=== PATIENT | female | born 1950 | race Caucasian/White ===

== ENCOUNTER 2018-09-10 14:04 | Observation (INO) ==
[2018-09-10] MEDS ORDERED: ASPIRIN 81 MG TAB.CHEW PO ONE (14:16)
[2018-09-10] MEDS ORDERED: NITROGLYCERIN 0.4 MG/TAB BTL SL ONE ×3 (14:19→14:38)
--- NOTE | 2018-09-10 14:20 | ERNOTE ---
Dyspnea - Date Date of Service: 09/10/18 - General Presenting Symptoms: shortness of breath Time Seen by Provider: 09/10/18 14:11 Source: patient Exam Limitations: no limitations - Immun/Allergies/Home Medications Immunizations: IMMUNIZATION HX Immunizations Up to Date Yes History of Influenza Vaccine No Hx Pneumococcal Vaccination No Allergies/Adverse Reactions: Allergies Sulfa (Sulfonamide Antibiotics) Allergy (Verified 09/10/18 14:16) latex Adverse Reaction (Mild, Verified 09/10/18 14:16) RASH, ITCH acetaminophen [From Percocet] Adverse Reaction (Verified 09/10/18 14:16) oxycodone HCl [From Percocet] Adverse Reaction (Verified 09/10/18 14:16) Home Medications: HOME MEDICATIONS Albuterol Sulfate [Proair Hfa] 2 puff IH Q4H PRN 09/05/14 [Last Taken Unknown] Aspirin [Aspirin Enteric Coated] 81 mg PO DAILY 09/05/14 [Last Taken Unknown] Budesonide/Formoterol Fumarate [Symbicort 80-4.5 Mcg Inhaler] 2 puff IH DAILY 09/05/14 [Last Taken Unknown] Cyanocobalamin [Vitamin B-12] 1,000 mcg PO DAILY 09/05/14 [Last Taken Unknown] Esomeprazole Magnesium [Nexium] 20 mg PO DAILY 09/05/14 [Last Taken Unknown] Levothyroxine Sodium [Synthroid] 137 mcg PO DAILY 09/05/14 [Last Taken 09/11/14 05:00] Lisinopril [Zestril] 10 mg PO DAILY 09/05/14 [Last Taken Unknown] Metoprolol Tartrate [Lopressor] 50 mg PO DAILY 09/05/14 [Last Taken 09/11/14 05:00] Multivitamins [Multivitamin Breanne] 1 cap PO DAILY 09/05/14 [Last Taken Unknown] Meloxicam 08/07/16 [Last Taken Unknown] - Pain Score Pain Score #1 Pain Score: 7 - History of Present Illness Narrative: The patient is a 68 year old female who presents for chest pain and dyspnea which has been present for 3 days. There are associated symptoms of nausea and cough. The patient reports pain to left anterior chest and tightness, 7/10. There are alleviating factors of rest. There are aggravating factors of lying flat and activity. Previous treatments have included: none. The past medical history includes: HTN, [place] (2000), hypothyroid, GERD and asthma. The social history is negative. The patient has had no ill contacts. Patient reports OK in 2000 without stent placement. Patient states she has been having dyspnea for several months but during the past 3 days began having CP with tightness wrapping around back. Patient states that she has also developed a cough with symptoms and felt feverish last evening. Treatment [employer] INST[employer] [place]OL[place]: none Initiating event: Reports: unknown Frequency of episodes: Reports: occassional episodes Modifying Factors - (Improves): Reports: rest Modifying Factors (Worsens): Reports: activity, coughing, lying down Associated Symptoms-Dyspnea: Reports: fever/chills, chest pain/discomfort, palpitations, cough. Denies: leg/calf pain, ankle/leg swelling, dizziness Review of Systems - Review of Systems Constitutional: Present: fever, fatigue. Absent: recent illness, chills EYE: Present: no symptoms reported ENT: Present: no symptoms reported. Absent: ear pain, nasal drainage, sore throat Respiratory: Present: shortness of breath, cough Cardiology: Present: chest pain, palpitations. Absent: edema Gastrointestinal/Abdominal: Present: nausea. Absent: vomiting, diarrhea, abdominal pain Genitourinary: Present: dysuria. Absent: frequency, decreased urinary output Musculoskeletal: Present: back pain - tightness Neurological: Present: no symptoms reported. Absent: headache Endocrine: Present: no symptoms reported Hematologic/Lymphatic: Present: no symptoms reported Psych: Present: no symptoms reported All Other Systems: All systems neg except as marked Medical History (Last Reviewed 09/10/18 @ 14:45 by Linda Cobos RN) Diverticulosis GERD (gastroesophageal reflux disease) Gout Heart attack Hiatal hernia Hypertension Hypothyroidism Surgical History: Surgical History (Last Reviewed 09/10/18 @ 14:45 by Linda Cobos RN) History of hysterectomy History of knee surgery right x2 Family History: Family History (Last Reviewed 09/10/18 @ 14:45 by Linda Cobos RN) Father Myocardial infarction Mother Myocardial infarction Hypothyroidism Daughter Hypothyroidism H/O blood clots Social History: Preferred Language Tajik Smoking Status Never smoker Abuse History No History of abuse Psych History No pertinent hx Alcohol Use rarely Drug Use none No Social History Section defined Physical Exam - Physical Exam General Appearance: Present: wd/wn, alert, mild distress, anxious Head Exam: Present: normal inspection, no evidence of injury Eye Exam: Normal inspection: bilateral Neck: Present: normal inspection, nontender Respiratory: Present: no respiratory distress, no accessory muscle use, chest nontender, decreased breath sounds - diffuse, shallow breathing Cardiovascular/Chest: Present: no murmur, normal peripheral pulses, tachycardia Gastrointestinal/Abdominal: Present: normal bowel sounds, nondistended, soft, no organomegaly, tenderness - suprapubic and LUQ Extremity Exam: Absent: pedal edema, extremity edema Neurological Exam: Present: alert, oriented, normal mood/affect Skin Exam: Present: normal color, warm/dry Progress - Date and Time Seen: Date and Time: 09/10/18 15:39 Low risk for Well's score with negative D-Dimer. 09/10/18 16:15 Reviewed case with . Patient will be admitted for acute CHF. Patient denies pain upon admission. Patient ambulatory to restroom and tachypneic with activity, output monitored. - Results and Orders Patient's Lab Results:: I have reviewed the patient's lab results. - Vital Signs Patient's Vital Signs:: I have reviewed the patient's vital signs. Vital Signs: Vital Signs 09/10/18 14:11 Temperature 37.4 C Pulse Rate 139 H Respiratory Rate 25 H Blood Pressure 218/120 H O2 Sat by Pulse Oximetry 94 - EKG EKG #1 EKG: NSR - tachycardia, rate 140 EKG read: Reviewed by me EKG Comments: Reviewed with - X-Ray X-Ray #1 X-Ray: chest Interpretation: Reviewed by me X-ray Comments: X-RAY REPORT ~[id number] RAD/Chest PA & Lateral *~ Exam Date: 09/10/2018 14:16 Ordering Physician: Mona Henson [employer]YST[employer] GROWING TECHNICIAN HISTORY: Chest Pain. Additional history from technologist: sob, chest pain, back pain for several days, asthma TECHNIQUE: PA and lateral views of the chest were obtained. 2 images. COMPARISONS: 12/26/2014 FINDINGS: Chest PA Lateral * Hypoinflated lung volumes. No consolidation or mass. There is generalized increased vascular markings and peripheral linear lung markings. There is trace amount of fluid within the fissures, and trace amount of pleural fluid within the dependent portion of the posterior costophrenic angles. There is no definable pneumothorax. Mild enlargement of the cardiac silhouette noted. Mild tortuosity of the thoracic aorta noted, with overlying atherosclerotic vascular calcifications. Trachea is in normal position. Bones show degenerative changes of the spine. IMPRESSION: Overall radiographic findings suggestive of congestive heart failure, with pulmonary venous congestion/interstitial edema and trace bilateral pleural fluid. Cardiomegaly. Electronically signed by Igor Viera M.D.. - Progress/Reassessment Chief Complaint: Dyspnea Departure Clinical Impression: Acute CHF Qualifiers: Heart failure type: unspecified Qualified Code(s): I50.9 - Heart failure, unspecified Chest pain Qualifiers: Chest pain type: unspecified Qualified Code(s): R07.9 - Chest pain, unspecified - Departure Disposition: Still a patient Condition: Fair
[2018-09-10 14:35] LABS: Hematocrit 40.6 % (37.0-47.0); Hemoglobin 12.8 gm/dL (12.5-16.0); Mean Cell Volume 92.7 fl (78-100); Mean Corpuscular Hemoglobin 29.2 pg (27-31); Mean Corpuscular Hgb Conc 31.5 g/dl (32-36); Neutrophil # 7.5 K/mm3 (1.3-6.0); Neutrophil % 69.8 % (42-75.0); Platelet Count 226 K/mm3 (150-450); Red Blood Count 4.38 M/mm3 (4.2-5.4); Red Cell Distribution Width 13.9 % (11.5-14.0); White Blood Count 10.7 K/mm3 (4.0-10.5)
[2018-09-10] MEDS ORDERED: MORPHINE SULFATE 2 MG/ML DISP.SYRIN IV ONE (14:46)
[2018-09-10 14:47] LABS: Prothrombin Time (Patient) 10.7 Seconds (9.0-11.0)
[2018-09-10 14:50] LABS: INR 1.07 INR (0.90-1.10); Partial Thrombolplastin Time 24.5 Seconds (24-32)
[2018-09-10 14:56] LABS: ALT 15 U/L (19-67); AST 17 U/L (0-48); Albumin * 3.8 gm/dl (3.4-5.0); Alkaline Phosphatase * 102 U/L (50-170); Anion Gap 13.8 mmol/L (6.8-13.8); BNP * 1862 pg/mL (5-325); BUN/Creatinine Ratio 16.7 (9.0-21.6); Bilirubin, Total 0.8 mg/dL (0.0-1.1); Blood Urea Nitrogen 14 mg/dL (3-23); Ca. Corrected For Albumin 9.3 mg/dL (8.4-10.2); Calcium * 9.5 mg/dL (7.9-10.9); Carbon Dioxide 27.5 mmol/L (24-32.6); Chloride 106 mmol/L (97-106); Glucose * 116 mg/dL (70-110); Potassium 4.3 mmol/L (3.4-4.6); Sodium 143 mmol/L (132-142); Troponin I Less than 0.017 ng/mL (0.00-0.10)
[2018-09-10 15:28] LABS: Urine Bilirubin Negative (NEGATIVE); Urine Blood Negative /ul (NEGATIVE); Urine Ketone 5 mg/dL (NEGATIVE); Urine Nitrite Negative (NEGATIVE); Urine Protein Negative (NEGATIVE); Urine Specific Gravity 1.025 SP.GR. (1.005-1.010); Urine Urobilinogen Normal (NORMAL)
[2018-09-10] MEDS ORDERED: FUROSEMIDE 10 MG/ML VIAL IV ONE (15:36)
[2018-09-10 15:38] LABS: Urine Appearance Clear (CLEAR); Urine Color Yellow
[2018-09-10 15:39] LABS: Urine Bacteria 1+; Urine RBC None Seen /hpf (0-5); Urine WBC 0-5 /hpf (0-5)
[2018-09-10] MEDS ORDERED: METOPROLOL TARTRATE 1 MG/ML AMPUL IV ONE (15:52)
[2018-09-10 16:37] LABS: CK Total * 56 U/L (0-259); CKMB 0.8 ng/mL (0.0-9.0); Troponin I Less than 0.017 ng/mL (0.00-0.10)
--- NOTE | 2018-09-10 19:09 | HP ---
Chief Complaint - Chief Complaint Date of Service: 09/10/18 Time of Service: 19:08 Chief Complaint: shortness of breatha nd chest pain History of Present Illness: Miya Luo, is a 68-year-old white female, with previous medical history of hypertension, hypothyroidism, questionable COPD who was admitted on 09/10/2018 because of shortness of breath and chest pain. The patient has been having shortness of breath with some wheezing for the last few weeks and called his primary care physician who told her not to worry.He told her to continue with her Symbicort and everything will be fine. Her shortness of breath started getting last night and she started having some left sided anteriror chest pin associated with bandlike back pain, 03/09. She also had cough and felt feverish . She then went to the ED today and CXR showed pulmonary congestion with BNP of 1820, normal troponin, EKG showed sinus tachycardia with HR 140, short AR interval. She got IV lasix and IV lopressor and admitted for observation. Medical History (Last Reviewed 09/10/18 @ 17:10 by Gogo Ortiz RN) Diverticulosis GERD (gastroesophageal reflux disease) Gout Heart attack Hiatal hernia Hypertension Hypothyroidism Surgical History: Surgical History (Last Reviewed 09/10/18 @ 17:10 by Gogo Ortiz RN) History of hysterectomy History of knee surgery right x2 Family History: Family History (Last Reviewed 09/10/18 @ 17:10 by Gogo Ortiz RN) Father Myocardial infarction Mother Myocardial infarction Hypothyroidism Daughter Hypothyroidism H/O blood clots Social History: Preferred Language Portuguese Smoking Status Never smoker Abuse History No History of abuse Psych History No pertinent hx Alcohol Use rarely Drug Use none No Social History Section defined Review Of Systems (GEN) - Review of Systems Generalized/Overall Review: Present: Fever. Absent: Chills EENTM: Absent: Blurred Vision Respiratory: Present: Cough, Shortness of Breath, Orthopnea, Wheezing Cardiac: Present: Chest Pain. Absent: Edema, Palpitations Abdominal: Absent: Nausea, Vomiting Genitourinary: Absent: Urgency, Frequency Musculoskeletal: Present: Back Pain Immunizations: IMMUNIZATION HX Immunizations Up to Date Yes History of Influenza Vaccine No Hx Pneumococcal Vaccination No Allergies/Adverse Reactions: Allergies Allergy/AdvReac Type Severity Reaction Status Date / Time Sulfa (Sulfonamide Allergy Verified 09/10/18 17:11 Antibiotics) latex AdvReac Mild RASH, ITCH Verified 09/10/18 17:11 acetaminophen [From Percocet] AdvReac Verified 09/10/18 17:11 oxycodone HCl [From Percocet] AdvReac Verified 09/10/18 17:11 Home Medications: HOME MEDICATIONS Albuterol Sulfate [Proair Hfa] 2 puff IH Q4H PRN 09/05/14 [Last Taken Unknown] Aspirin [Aspirin Enteric Coated] 81 mg PO DAILY 09/05/14 [Last Taken Unknown] Budesonide/Formoterol Fumarate [Symbicort 80-4.5 Mcg Inhaler] 2 puff IH DAILY 09/05/14 [Last Taken Unknown] Cyanocobalamin [Vitamin B-12] 1,000 mcg PO DAILY 09/05/14 [Last Taken Unknown] Esomeprazole Magnesium [Nexium] 20 mg PO DAILY 09/05/14 [Last Taken Unknown] Levothyroxine Sodium [Synthroid] 137 mcg PO DAILY 09/05/14 [Last Taken 09/11/14 05:00] Lisinopril [Zestril] 10 mg PO DAILY 09/05/14 [Last Taken Unknown] Metoprolol Tartrate [Lopressor] 50 mg PO DAILY 09/05/14 [Last Taken 09/11/14 05:00] Multivitamins [Multivitamin Breanne] 1 cap PO DAILY 09/05/14 [Last Taken Unknown] Meloxicam 08/07/16 [Last Taken Unknown] Meloxicam 7.5 mg PO HS 09/10/18 [Last Taken Unknown] Exam - Exam Vital Signs: Vital Signs - Last Taken Temp 37.4 C 09/10/18 14:11 Pulse 135 H 09/10/18 16:50 Resp 15 09/10/18 16:50 BP 137/80 09/10/18 16:50 Pulse Ox 91 L 09/10/18 16:50 Constitutional: Present: Alert, Cooperative, Obese ENT Exam: Present: hearing grossly normal Eye Exam: bilateral eye: normal inspection, PERRL, EOMI Neck: Present: supple Respiratory: Present: decreased breath sounds. Absent: No rales, No wheezing Cardiovascular/Chest: Present: JVD, tachycardia. Absent: regular rate, rhythm, no murmur Abdomen: Present: Normal bowel sounds, soft, nontender, nondistended Extremity: Present: no calf tenderness, pedal edema Diagnostic Studies: Abnormal Lab Results 09/10/18 09/10/18 09/10/18 Range/Units 14:28 14:28 15:25 WBC 10.7 H (4.0-10.5) K/mm3 MCHC 31.5 L (32-36) g/dl Lymphocytes % 19.8 L (20-51) % Eosinophils % 3.2 H (0.0-3.0) % Neutrophils # 7.5 H (1.3-6.0) K/mm3 Sodium 143 H (132-142) mmol/L Plasma Sodium 143 H (130-142) mmol/L Random Glucose 116 H (70-110) mg/dL ALT 15 L (19-67) U/L B-Natriuretic Peptide 1862 H (5-325) pg/mL Ur Leukocyte Esterase 25 H (NEGATIVE) /ul Urine Bacteria 1+ H (NONE) Laboratory Results WBC 10.7 K/mm3 (4.0-10.5) H 09/10/18 14:28 RBC 4.38 M/mm3 (4.2-5.4) 09/10/18 14:28 Hgb 12.8 gm/dL (12.5-16.0) 09/10/18 14:28 Hct 40.6 % (37.0-47.0) 09/10/18 14:28 MCV 92.7 fl (78-100) 09/10/18 14:28 MCH 29.2 pg (27-31) 09/10/18 14:28 MCHC 31.5 g/dl (32-36) L 09/10/18 14:28 RDW 13.9 % (11.5-14.0) 09/10/18 14:28 Plt Count 226 K/mm3 (150-450) 09/10/18 14:28 MPV 10.0 fl (8-12.5) 09/10/18 14:28 Immature Gran % (Auto) 0.30 % (0.001-0.429) 09/10/18 14:28 Immature Gran # (Auto) 0.03 K/mm3 (0.000-0.0310) 09/10/18 14:28 Neutrophils % 69.8 % (42-75.0) 09/10/18 14:28 Lymphocytes % 19.8 % (20-51) L 09/10/18 14:28 Monocytes % 6.2 % (0.0-9) 09/10/18 14:28 Eosinophils % 3.2 % (0.0-3.0) H 09/10/18 14:28 Basophils % 0.7 % (0.0-1.0) 09/10/18 14:28 Nucleated RBC % 0.0 k/mm3 (0-1) 09/10/18 14:28 Neutrophils # 7.5 K/mm3 (1.3-6.0) H 09/10/18 14:28 Lymphocytes # 2.12 k/mm3 (1.5-3.5) 09/10/18 14:28 Monocytes # 0.7 k/mm3 (0.0-1.0) 09/10/18 14:28 Eosinophils # 0.3 k/mm3 (0.0-0.7) 09/10/18 14:28 Absolute Basophils 0.1 k/mm3 (0.0-0.1) 09/10/18 14:28 PT 10.7 Seconds (9.0-11.0) 09/10/18 14:28 INR (Anticoag Therapy) 1.07 INR (0.90-1.10) 09/10/18 14:28 PTT (Everardo) 24.5 Seconds (24-32) 09/10/18 14:28 D-Dimer 0.37 ug/mL (0.19-0.49) 09/10/18 14:28 Sodium 143 mmol/L (132-142) H 09/10/18 14:28 Plasma Sodium 143 mmol/L (130-142) H 09/10/18 14:28 Potassium 4.3 mmol/L (3.4-4.6) 09/10/18 14:28 Chloride 106 mmol/L (97-106) 09/10/18 14:28 Carbon Dioxide 27.5 mmol/L (24-32.6) 09/10/18 14:28 Anion Gap 13.8 mmol/L (6.8-13.8) 09/10/18 14:28 BUN 14 mg/dL (3-23) 09/10/18 14:28 Creatinine 0.84 mg/dL (0.4-1.4) 09/10/18 14:28 Est GFR (Non-Af Amer) 72 mL/min (60-130) 09/10/18 14:28 BUN/Creatinine Ratio 16.7 (9.0-21.6) 09/10/18 14:28 Random Glucose 116 mg/dL (70-110) H 09/10/18 14:28 Lactic Acid, Venous 1.2 mmol/L (0.4-2.0) 09/10/18 14:28 Calcium 9.5 mg/dL (7.9-10.9) 09/10/18 14:28 Calcium Adj for Albumin 9.3 mg/dL (8.4-10.2) 09/10/18 14:28 Total Bilirubin 0.8 mg/dL (0.0-1.1) 09/10/18 14:28 AST 17 U/L (0-48) 09/10/18 14:28 ALT 15 U/L (19-67) L 09/10/18 14:28 Alkaline Phosphatase 102 U/L (50-170) 09/10/18 14:28 Creatine Kinase 56 U/L (0-259) 09/10/18 14:28 CK-MB (CK-2) 0.8 ng/mL (0.0-9.0) 09/10/18 14:28 CK-MB (CK-2) Rel Index 1.4 (0.0-3.6) 09/10/18 14:28 Troponin I Less than 0.017 ng/mL (0.00-0.10) 09/10/18 14:28 B-Natriuretic Peptide 1862 pg/mL (5-325) H 09/10/18 14:28 Total Protein 8.0 gm/dL (6.2-8.2) 09/10/18 14:28 Albumin 3.8 gm/dl (3.4-5.0) 09/10/18 14:28 Urine Color Yellow 09/10/18 15:25 Urine Appearance Clear (CLEAR) 09/10/18 15:25 Urine pH 6.0 pH (5.0-7.0) 09/10/18 15:25 Ur Specific [place] 1.025 SP.GR. (1.005-1.010) 09/10/18 15:25 Urine Protein Negative mg/dL (NEGATIVE) 09/10/18 15:25 Urine Glucose (UA) Negative mg/dL (NEGATIVE) 09/10/18 15:25 Urine Ketones 5 mg/dL (NEGATIVE) 09/10/18 15:25 Urine Blood Negative /ul (NEGATIVE) 09/10/18 15:25 Urine Nitrate Negative (NEGATIVE) 09/10/18 15:25 Urine Bilirubin Negative mg/dl (NEGATIVE) 09/10/18 15:25 Urine Urobilinogen Normal EU/dl (NORMAL) 09/10/18 15:25 Ur Leukocyte Esterase 25 /ul (NEGATIVE) H 09/10/18 15:25 Urine RBC None seen /hpf (0-5) 09/10/18 15:25 Urine WBC 0-5 /hpf (0-5) 09/10/18 15:25 Ur Epithelial Cells 0-5 /hpf (0-5) 09/10/18 15:25 Urine Bacteria 1+ (NONE) H 09/10/18 15:25 Urine Culture Comments Culture to follow 09/10/18 15:25 Assessment/Plan - Assessment/Plan (1) Dyspnea on exertion Assessment: due to CHF. Problem: Acute (2) Acute CHF Assessment: will get Echocardiogram . continue with IV diuresis. Problem: Acute Qualifiers: Heart failure type: unspecified Qualified Code(s): I50.9 - Heart failure, unspecified (3) Chest pain Assessment: rule out ACS. if her second set of troponin is normal, AMI will be ruled out and will get a nuclear pharmacologic stress test on OPD basis. Problem: Acute Qualifiers: Chest pain type: unspecified Qualified Code(s): R07.9 - Chest pain, unspecified (4) Arrhythmia Assessment: will give metorpolol tartrate tonight. will get TSH, FT4. Problem: Acute Qualifiers: Arrhythmia type: unspecified cardiac arrhythmia Qualified Code(s): I49.9 - Cardiac arrhythmia, unspecified (5) Hypertension Assessment: continue with home medication Problem: Chronic Qualifiers: Hypertension type: essential hypertension Qualified Code(s): I10 - Essential (primary) hypertension (6) Hypothyroidism Assessment: continue with home medication Problem: Chronic Qualifiers: Hypothyroidism type: unspecified Qualified Code(s): E03.9 - Hypothyroidism, unspecified (7) COPD (chronic obstructive pulmonary disease) Assessment: when she asked her PCP if she had COPD or Asthma, she was told she did not have but he had given her Symbicort and a rescue inhaler. will do PFT on outpatient basis. Problem: Suspected
[2018-09-10] MEDS ORDERED: ALBUTEROL SULFATE 200 PUFF INHALER IH PRN (19:51)
[2018-09-10] MEDS ORDERED: FUROSEMIDE 10 MG/ML VIAL IV SCH (20:00)
[2018-09-10 20:48] LABS: T4 Free * 1.39 ng/dL (0.76-1.46); TSH * 1.647 uIU/mL (0.358-3.74)
[2018-09-10] MEDS ORDERED: METOPROLOL TARTRATE 50 MG TABLET PO ONE (21:00)
[2018-09-10] MEDS ORDERED: MELOXICAM 7.5 MG TABLET PO SCH (21:00)
[2018-09-10 21:02] LABS: Troponin I Less than 0.017 ng/mL (0.00-0.10)
[2018-09-10] MEDS ORDERED: MELOXICAM 7.5 MG TABLET ONE (21:07)
[2018-09-11] MEDS ORDERED: LEVOTHYROXINE SODIUM 137 MCG TABLET PO SCH (07:00)
[2018-09-11] MEDS ORDERED: PANTOPRAZOLE SODIUM 20 MG TABLET.DR PO SCH (07:00)
[2018-09-11] MEDS ORDERED: ALBUTEROL SULFATE 2.5 MG/0.5 ML VIAL.NEB IH PRN (07:30)
[2018-09-11] MEDS ORDERED: LISINOPRIL 10 MG TABLET PO SCH (09:00)
[2018-09-11] MEDS ORDERED: CIPROFLOXACIN HCL 500 MG TABLET PO SCH (09:00)
[2018-09-11] MEDS ORDERED: ASPIRIN 81 MG TABLET.DR PO SCH (09:00)
[2018-09-11] MEDS ORDERED: FLUTICASONE/SALMETEROL 14 PUFF DISK.W.DEV IH SCH (09:00)
[2018-09-11] MEDS ORDERED: MULTIVITAMINS 1 CAP CAPSULE PO SCH (09:00)
[2018-09-11] MEDS ORDERED: CYANOCOBALAMIN 1,000 MCG TABLET PO SCH (09:00)
[2018-09-11] MEDS ORDERED: METOPROLOL SUCCINATE 100 MG TABLET.SA PO SCH (10:15)
--- NOTE | 2018-09-11 10:20 | DS ---
(1) Chest pain Diagnosis(s): AMI ruled out. Problem: Acute Qualifiers: Chest pain type: unspecified Qualified Code(s): R07.9 - Chest pain, unspecified (2) Dyspnea on exertion Problem: Acute (3) Acute CHF Problem: Acute Qualifiers: Heart failure type: unspecified Qualified Code(s): I50.9 - Heart failure, unspecified (4) Arrhythmia Problem: Acute Qualifiers: Arrhythmia type: unspecified cardiac arrhythmia Qualified Code(s): I49.9 - Cardiac arrhythmia, unspecified (5) Hypertension Problem: Chronic Qualifiers: Hypertension type: essential hypertension Qualified Code(s): I10 - Essential (primary) hypertension (6) Hypothyroidism Problem: Chronic Qualifiers: Hypothyroidism type: unspecified Qualified Code(s): E03.9 - Hypothyroidism, unspecified (7) COPD (chronic obstructive pulmonary disease) Problem: Suspected Description of Stay: Miya Luo, is a 68-year-old white female, with previous medical history of hypertension, hypothyroidism, questionable COPD who was admitted on 09/10/2018 because of shortness of breath and chest pain. The patient has been having shortness of breath with some wheezing for the last few weeks and called his primary care physician who told her not to worry.He told her to continue with her Symbicort and everything will be fine. 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 She also had cough and felt feverish . She then went to the ED today and CXR showed pulmonary congestion with a BNP of 1820, normal troponin, EKG showed sinus tachycardia with HR 140, short SC interval ( although it was reading as Atrial flutter/tachycardia) . She got IV lasix and IV lopressor and admitted for observation. Her diuretics was continued and she has lost 6 pounds. Her serial troponin were normal and she ruled out for AMI. We will discharge her today on lasix and will give her a K rich diet list. We will schedule her a nuclear pharmacologic stress test, Echo , and PFT as an outpatient. She can follow up with me x 1 until she finds a new PCP. Procedures Performed: none Results and Findings: Pending Mircobiology Results 09/10/18 15:39 Urine,Clean Catch Urine Culture - Preliminary No Growth Lab Pending Results 09/10/18 14:28: WBC 10.7 H, RBC 4.38, Hgb 12.8, Hct 40.6, MCV 92.7, MCH 29.2, MCHC 31.5 L, RDW 13.9, Plt Count 226, MPV 10.0, Immature Gran % (Auto) 0.30, Immature Gran # (Auto) 0.03, Neutrophils % 69.8, Lymphocytes % 19.8 L, Monocytes % 6.2, Eosinophils % 3.2 H, Basophils % 0.7, Nucleated RBC % 0.0, Neutrophils # 7.5 H, Lymphocytes # 2.12, Monocytes # 0.7, Eosinophils # 0.3, Absolute Basophils 0.1 09/10/18 14:28: PT 10.7, INR (Anticoag Therapy) 1.07, PTT ([place]) 24.5 09/10/18 14:28: Sodium 143 H, Plasma Sodium 143 H, Potassium 4.3, Chloride 106, Carbon Dioxide 27.5, Anion Gap 13.8, BUN 14, Creatinine 0.84, Est GFR (Non-Af Amer) 72, BUN/Creatinine Ratio 16.7, Random Glucose 116 H, Calcium 9.5, Calcium Adj for Albumin 9.3, Total Bilirubin 0.8, AST 17, ALT 15 L, Alkaline Phosphatase 102, Troponin I Less than 0.017, B-Natriuretic Peptide 1862 H, Total Protein 8.0, Albumin 3.8 09/10/18 14:28: D-Dimer 0.37 09/10/18 14:28: Lactic Acid, Venous 1.2 09/10/18 14:28: Creatine Kinase 56, CK-MB (CK-2) 0.8, CK-MB (CK-2) Rel Index 1.4, Troponin I Less than 0.017 09/10/18 15:25: Urine Color Yellow, Urine Appearance Clear, Urine pH 6.0, Ur Specific [place] 1.025, Urine Protein Negative, Urine Glucose (UA) Negative, Urine Ketones 5, Urine Blood Negative, Urine Nitrate Negative, Urine Bilirubin Negative, Urine Urobilinogen Normal, Ur Leukocyte Esterase 25 H, Urine RBC None seen, Urine WBC 0-5, Ur Epithelial Cells 0-5, Urine Bacteria 1+ H, Urine Culture Comments Culture to follow 09/10/18 20:31: Troponin I Less than 0.017, TSH 1.647, Free T4 1.39 Discharge Location: Home Disposition: Home self-care Condition: Stable Discharge Activity: Activity as tolerated Discharge Diet: Low salt Referrals: Robert Rangel MD [Primary Care Provider] - Additional Patient Instructions (free text): Follow up with me x 1 in 1 week . Schedule an Echo, nuclear pharmacologic stress test and PFT as outpatient next week. Give her K rich diet list. Prescriptions (Any new or edited meds): Ciprofloxacin HCl [Cipro] 500 mg PO BID #6 tablet Furosemide [Lasix] 20 mg PO DAILY #30 tablet Metoprolol Succinate [Toprol Xl] 100 mg PO DAILY #30 tablet.sa Nitroglycerin [Nitrostat] 0.3 mg SL ONCE PRN #20 tab.subl PRN Reason: Chest Pain Complete Home Medications List: Complete Home Medication List: Albuterol Sulfate [Proair Hfa] 2 puff IH Q4H PRN 09/05/14 Aspirin [Aspirin Enteric Coated] 81 mg PO DAILY 09/05/14 Budesonide/Formoterol Fumarate [Symbicort 80-4.5 Mcg Inhaler] 2 puff IH DAILY 09/05/14 Cyanocobalamin [Vitamin B-12] 1,000 mcg PO DAILY 09/05/14 Esomeprazole Magnesium [Nexium] 20 mg PO DAILY 09/05/14 Levothyroxine Sodium [Synthroid] 137 mcg PO DAILY 09/05/14 Lisinopril [Zestril] 10 mg PO DAILY 09/05/14 Multivitamins [Multivitamin Breanne] 1 cap PO DAILY 09/05/14 Meloxicam 7.5 mg PO HS 09/10/18 Ciprofloxacin HCl [Cipro] 500 mg PO BID #6 tablet 09/11/18 Furosemide [Lasix] 20 mg PO DAILY #30 tablet 09/11/18 Metoprolol Succinate [Toprol Xl] 100 mg PO DAILY #30 tablet.sa 09/11/18 Nitroglycerin [Nitrostat] 0.3 mg SL ONCE PRN #20 tab.subl 09/11/18
[2018-09-11 12:34] VITALS: BP 149/85
[2018-09-12] MEDS ORDERED: FLUTICASONE/SALMETEROL 14 PUFF DISK.W.DEV IH SCH (09:00)
== END 2018-09-11 13:00 | disposition home or self-care (01) ==
LOC: ER 14:04 → MS 14:04
PROVIDERS: ADMIT Internal Medicine; ATTEND Internal Medicine
CPT/HCPCS: 36415; 71020; 71046; 80053; 81001; 82550; 82553; 83519; 83605; 83880; 84439; 84443; 84484; 85025; 85379; 85610; 85730; 87086; 90686; 93005; 96374; 96375; 99285; G0008; G0378